=== PATIENT | female | born 1965 | race Caucasian/White ===

== ENCOUNTER 2017-01-26 20:56 | Emergency (ER) | payer SELFPAY ==
[~2017-01-26] VITALS: Ht 170.2 cm; Wt 59.0 kg
[2017-01-26 21:02] VITALS: BP 138/72
== END 2017-01-26 21:33 | disposition home or self-care (01) ==
LOC: ER 21:01
DX: F41.9 Anxiety disorder, unspecified (principal); F21 Schizotypal disorder; Z88.1 Allergy status to other antibiotic agents; Z88.8 Allergy status to other drugs, medicaments and biological substances
CPT/HCPCS: A4606; Z7610

== ENCOUNTER 2017-10-24 17:59 | Emergency (ER) | payer BC, OTHER ==
[~2017-10-24] VITALS: Ht 170.2 cm; Wt 64.4 kg
[2017-10-24 18:03] VITALS: BP 108/81
[2017-10-24] MEDS ORDERED: LORAZEPAM 1 MG TABLET ONE (18:24)
[2017-10-24] MEDS ORDERED: LORAZEPAM 0.5 MG TABLET PO ONE (18:30)
== END 2017-10-24 18:40 | disposition home or self-care (01) ==
LOC: ER 18:01
DX: S40.861A Insect bite (nonvenomous) of right upper arm, initial encounter (principal); S90.862A Insect bite (nonvenomous), left foot, initial encounter; F41.9 Anxiety disorder, unspecified; Z88.0 Allergy status to penicillin; Z88.1 Allergy status to other antibiotic agents; Z88.8 Allergy status to other drugs, medicaments and biological substances; W57.XXXA Bitten or stung by nonvenomous insect and other nonvenomous arthropods, initial encounter; Y93.89 Activity, other specified; Y92.89 Other specified places as the place of occurrence of the external cause; Y99.8 Other external cause status
CPT/HCPCS: 99284; A4606; Z7610

== ENCOUNTER 2017-12-03 16:32 | Emergency (ER) | payer BC ==
[~2017-12-03] VITALS: Ht 170.2 cm; Wt 60.3 kg
--- NOTE | 2017-12-03 16:40 | NUR ---
PT TO ER BED 05. PRESENTS W/ R MIDDLE FINGER LAC POST ACCIDENTALY CUT HERSELF W/ SCISSORS. MINIMAL BLEEDING. VSS. AWAITING MD BURGOS.
--- NOTE | 2017-12-03 16:47 | NUR ---
MONTSERRAT MICHEL ATY BEDSIDE FOR EVAL.
[2017-12-03] MEDS ORDERED: BUPIVACAINE 0.5 % PF 150 MG/30 ML VIAL ONE (16:55)
[2017-12-03] MEDS ORDERED: TDAP [DIPH/PERTUSSIS/TET] 0.5 ML VIAL IM ONE ×2 (16:56→17:00)
[2017-12-03] MEDS ORDERED: BUPIVACAINE 0.5 % PF 150 MG/30 ML VIAL TP ONE (17:00)
--- NOTE | 2017-12-03 17:45 | NUR ---
LAC REPAIR DONE. 3 SUTURES NOTED. PT D/C HOME IN STABLE CONDITION.
[2017-12-03 17:46] VITALS: BP 115/62
== END 2017-12-03 17:47 | disposition home or self-care (01) ==
LOC: ER 16:36
DX: S61.213A Laceration without foreign body of left middle finger without damage to nail, initial encounter (principal); F41.9 Anxiety disorder, unspecified; Z88.1 Allergy status to other antibiotic agents; Z88.0 Allergy status to penicillin; Z88.8 Allergy status to other drugs, medicaments and biological substances; W26.8XXA Contact with other sharp object(s), not elsewhere classified, initial encounter; Y93.89 Activity, other specified; Y92.89 Other specified places as the place of occurrence of the external cause; Y99.8 Other external cause status
CPT/HCPCS: 90715; A4606; A6402; J3490; Z7610

== ENCOUNTER 2017-12-06 01:25 | Emergency (ER) | payer BC ==
[~2017-12-06] VITALS: Ht 170.2 cm; Wt 59.9 kg
[2017-12-06 01:34] VITALS: BP 113/68
--- NOTE | 2017-12-06 01:50 | NUR ---
PT WENT TO BED #3 AND IS AWAITING MD.
--- NOTE | 2017-12-06 01:51 | NUR ---
DR. MOSS IS AT THE BEDSIDE EVALUATING THE PT. THE PT IS NOT ALLOWING DR MOSS TO EVALUATE HER PROPERLY. PT HAD DENTAL SX YESTERDAY AND HAS SOME EDEMA. NO ERRYTHEMA NOTED.
--- NOTE | 2017-12-06 01:55 | NUR ---
PT WENT TO THE LOBBY AND REQUESTED TO SEE THE NURSING SMELTER LINER. [place], NURSING SMELTER LINER WAS NOTIFIED.
--- NOTE | 2017-12-06 02:01 | NUR ---
PT LEFT THE LOBBY.
== END 2017-12-06 02:16 | disposition left against medical advice (07) ==
LOC: ER 01:27
DX: K08.89 Other specified disorders of teeth and supporting structures (principal); F41.9 Anxiety disorder, unspecified; Z88.0 Allergy status to penicillin; Z88.1 Allergy status to other antibiotic agents; Z88.8 Allergy status to other drugs, medicaments and biological substances
CPT/HCPCS: 99281; A4606; Z7610; Z7502